=== PATIENT | female | born 1990 ===

== ENCOUNTER 2017-03-05 07:36 | Emergency (ER) | payer OTHER ==
[2017-03-05 07:36] VITALS: BMI 34.7
[2017-03-05] MEDS ORDERED: Sodium Chloride 0.9% 1,000 ML IV STA ×2 (08:11→10:31)
--- NOTE | 2017-03-05 08:22 | ED PDOC ---
Syncope/Near Syncope/Dizzyness Time Seen by Provider: 03/05/17 07:47 Chief Complaint (Nursing): Syncope Chief Complaint (Provider): Syncope History Per: Patient History/Exam Limitations: no limitations Onset/Duration Of Symptoms: Hrs Current Symptoms Are (Timing): Still Present Number Of Syncopal Episodes: 3 Activity At Onset Of Symptoms: Standing Associated Symptoms Preceding Syncopal Episode: No Predromal Symptoms (Sudden Onset) Seizure Or Post-ictal Symptoms: None Possible Causative Factor(s): Decreased PO Intake Fall Associated With With Symptoms: No Severity: Mild Additional History Per: Family Additional Complaint(s): Patient is a 26 year old female who presents to ED for syncopal episodes this morning. As per at bedside, patient had 3 syncopal episodes this morning , twice with him and once with EMS. Patient reports that she had body aches, nausea vomiting and diarrhea that began last night. States 1 episode of diarrhea but multiple episodes of vomiting all night. Denies chest pain, palpations, SOB, fever or chills. PMD: DR. Grady Past Medical History Reviewed: Historical Data, Nursing Documentation, Vital Signs Vital Signs: Last Vital Signs Temp 98.8 F 03/05/17 07:47 Pulse 118 H 03/05/17 07:47 Resp 20 03/05/17 07:47 BP 110/72 03/05/17 07:47 Pulse Ox 97 03/05/17 07:47 - Medical History PMH: HTN - Surgical History Surgical History: - Family History Family History: States: Unknown Family Hx - Living Arrangements Living Arrangements: With Family - Home Medications Home Medications: Ambulatory Orders Medication Instructions Recorded Ferrous Sulfate/Vit C/FA [Folitab 1 tab PO DAILY 01/02/16 500 Caplet] Pnv No.122/Iron/Folic Acid 1 tab PO DAILY 01/02/16 [ Multi Tablet] Ibuprofen [Motrin] 600 mg PO Q6 PRN #0 tab 01/05/16 oxyCODONE/Acetaminophen [Percocet 1 ea PO Q4H PRN #0 tab 01/05/16 5/325 mg Tab] Ibuprofen [Motrin] 600 mg PO TID 7 Days 04/10/16 Penicillin VK [Pen-Vee K] 500 mg PO BID 7 Days 04/10/16 Ondansetron ODT [Zofran ODT] 4 mg PO Q8 PRN #12 odt 03/05/17 - Allergies Allergies/Adverse Reactions: Allergies Allergy/AdvReac Type Severity Reaction Status Date / Time Opioids - Morphine Analogues Allergy Severe ANAPHYLAXIS Verified 03/05/17 07:46 Review of Systems ROS Statement: Except As Marked, All Systems Reviewed And Found Negative Constitutional: Negative for: Fever, Chills Cardiovascular: Negative for: Chest Pain, Palpitations Respiratory: Negative for: Shortness of Breath Gastrointestinal: Positive for: Nausea, Vomiting, Abdominal Pain, Diarrhea Musculoskeletal: Negative for: Neck Pain, Back Pain Skin: Negative for: Rash Neurological: Negative for: Weakness, Numbness Physical Exam - Reviewed Nursing Documentation Reviewed: Yes Vital Signs Reviewed: Yes - Physical Exam Appears: Positive for: Non-toxic, No Acute Distress Skin: Positive for: Normal Color, Warm. Negative for: Pallor Eye Exam: Positive for: Normal appearance, EOMI, PERRL Neck: Positive for: Normal, Painless ROM Cardiovascular/Chest: Positive for: Regular Rate, Rhythm. Negative for: Murmur Respiratory: Positive for: Normal Breath Sounds. Negative for: Respiratory Distress Gastrointestinal/Abdominal: Positive for: Normal Exam. Negative for: Tenderness , Distended Back: Positive for: Normal Inspection Extremity: Positive for: Normal ROM Neurologic/Psych: Positive for: Alert, pot operator II-XII (grossly intact ), Oriented - Laboratory Results Result Diagrams: 03/05/17 08:35 03/05/17 08:35 - ECG ECG: Positive for: Interpreted By Me, Viewed By Me ECG Rhythm: Positive for: Normal QRS, Normal ST Segment, Sinus Rhythm. Negative for: ST/T Changes Rate: 112 O2 Sat by Pulse Oximetry: 97 (RA) Pulse Ox Interpretation: Normal Medical Decision Making Medical Decision Making: Time:804 Initial impression: Syncope likely vasal vagal due to dehydration less likely cardiac Initial plan: -- EKG -- CMP -- Lipase -- Troponin -- Urine preg -- Urine dip -- CBC -- NSF and Zofran Scribe Attestation: Documented by Valentina Jordan acting as a scribe for Jerome Gillespie MD MD Scribe Attestation: All medical record entries made by the Scribe were at my direction and personally dictated by me. I have reviewed the chart and agree that the record accurately reflects my personal performance of the history, physical exam, medical decision making, and the department course for this patient. I have also personally directed, reviewed, and agree with the discharge instructions and disposition. Disposition - Clinical Impression Clinical Impression: Syncope - Patient ED Disposition Is Patient to be Admitted: No Doctor Will See Patient In The: Office Counseled Patient/Family Regarding: Studies Performed, Diagnosis, Need For Followup - Disposition Referrals: [facility] [Outside] Disposition: Routine/Home Disposition Time: 09:48 Condition: GOOD Additional Instructions: Drink plenty of fluids. Return for worsening. Follow up with your PCP in 2-3 days. Prescriptions: Ondansetron ODT [Zofran ODT] 4 mg PO Q8 PRN #12 odt PRN Reason: Nausea/Vomiting Instructions: Syncope (ED)
[2017-03-05 08:47] LABS: BASO % 0.2 % (0.0-2.0); EOS % 0.6 % (0.0-4.0); LYMPH # 0.5 K/uL (1.0-4.3); LYMPH % 7.2 % (20.0-40.0); MEAN CORPUSCULAR HEMOGLOBIN 29.2 pg (27.0-31.0); MEAN CORPUSCULAR HGB CONC 33.3 g/dL (33.0-37.0); MEAN PLATELET VOLUME 9.2 fl (7.2-11.7); MONO # 0.4 K/uL (0.0-0.8); MONO % 5.1 % (0.0-10.0); NEUT # 6.1 K/uL (1.8-7.0); NEUT % 86.9 % (50.0-75.0); PLATELET COUNT 197 K/uL (130-400); RED CELL DISTRIBUTION WIDTH 15.1 % (11.5-14.5)
[2017-03-05 08:48] LABS: MEAN CELL VOLUME 87.6 fl (81.0-99.0)
[2017-03-05 09:01] LABS: ALB/GLOB RATIO 1.2 (1.0-2.1); ALKALINE PHOSPHATASE 108 U/L (38-126); ALT/SGPT 28 U/L (9-52); AST/SGOT 28 U/L (14-36); BILIRUBIN,TOTAL 0.8 mg/dl (0.2-1.3); BLOOD UREA NITROGEN 13 mg/dl (7-17); CALCIUM 8.8 mg/dL (8.4-10.2); CARBON DIOXIDE 27 mmol/L (22-30); CHLORIDE 103 mmol/L (98-107); GFR AFRICAN-AMERICAN > 60; GLUCOSE,RANDOM 88 mg/dL (65-105); LIPASE 31 U/L (23-300); POTASSIUM 3.6 MMOL/L (3.6-5.0); SODIUM 144 mmol/l (132-148); TOTAL PROTEIN 7.3 G/DL (6.3-8.2)
[2017-03-05 10:48] VITALS: BP 111/76; PULSE 89; RESP 16; TEMP 98.7; O2SAT 100
[2017-03-05 10:53] LABS: NEUTROPHIL 87 % (42-75); REACTIVE LYMPHOCYTES 1 % (0-0); TOTAL CELLS COUNTED 100
[2017-03-05 10:54] LABS: GIANT PLATELETS PRESENT
--- NOTE | 2017-03-05 21:27 | CARD ---
APPROVED REPORT EKG Measurement Heart [id number] <Conclusion> Sinus tachycardia Nonspecific T wave abnormality Abnormal ECG
== END 2017-03-05 10:50 | disposition home or self-care (01) ==
LOC: H.ER 07:36
DX: R55 Syncope and collapse (principal); I10 Essential (primary) hypertension